=== PATIENT | male | born 1975 | race Two or more races ===

== ENCOUNTER 2016-12-23 14:59 | Emergency (ER) | payer SELFPAY ==
[~2016-12-23] VITALS: Ht 165.1 cm; Wt 76.2 kg
[~2016-12-23 14:59] MED LIST: IBUP800T54 PO
[2016-12-23] MEDS ORDERED: OMEPRAZOLE (15:12)
--- NOTE | 2016-12-23 18:10 | NUR ---
Patient discharged to home in stable conditon. Written and verbal after care instructions given. Patient verbalizes understanding of instructions.pt walks in steady gait.
== END 2016-12-23 18:10 | disposition home or self-care (01) ==
LOC: ER 15:01
DX: M54.12 Radiculopathy, cervical region (principal); Z88.0 Allergy status to penicillin
CPT/HCPCS: A4663